=== PATIENT | male | born 1990 | race Asian ===

== ENCOUNTER 2017-06-02 21:06 | Emergency (ER) | payer MEDICAID ==
[~2017-06-02] VITALS: Ht 175.3 cm; Wt 79.4 kg
[2017-06-02 21:20] VITALS: BP 115/74
--- NOTE | 2017-06-02 21:28 | Emergency Room Report ---
History of Present Illness General Chief Complaint: Skin Rash/Abscess Source: Patient Present Illness HPI Patient presents with complaints of rash He noticed the area in the neck region Bilateral antecubital fossa and behind the knees This has flared up is about 5 months ago Patient reports is about the same time he moved locations He feels the area is fairly itchy in nature He has used a hydrocortisone cream in the past with some relief Denies any fevers or chills denies any neck pain or photophobia Allergies: Coded Allergies: Dust (Verified Allergy, Unknown, 06/02/17) POLLEN EXTRACTS (Verified Allergy, Unknown, 06/02/17) Patient History Past Medical History: see triage record Pertinent Family History: none Reviewed Nursing Documentation: PMH: Agreed, PSxH: Agreed Nursing Documentation-PMH Past Medical History: No Stated History Review of Systems All Other Systems: negative except mentioned in HPI Physical Exam Vital Signs Date Time Temp Pulse Resp B/P (MAP) Pulse Ox O2 Delivery O2 Flow Rate FiO2 06/02/17 21:09 97.9 57 18 113/78 96 Room Air 97.9 Sp02 EP Interpretation: reviewed, normal General Appearance: well appearing, no apparent distress Head: normocephalic, atraumatic Eyes: bilateral eye PERRL, bilateral eye EOMI ENT: hearing grossly normal, normal pharynx, TMs + canals normal, uvula midline Neck: full range of motion, supple, no meningismus, no bony tend Respiratory: lungs clear, normal breath sounds, no rhonchi, no respiratory distress, no retraction, no accessory muscle use Cardiovascular #1: normal peripheral pulses, regular rate, rhythm, no edema, no gallop, no JVD, no murmur Gastrointestinal: normal bowel sounds, non tender, soft, no mass, no organomegaly, non-distended, no guarding, no hernia, no pulsatile mass, no rebound Musculoskeletal: normal inspection Neurologic: oriented x3, responsive, liquid floor and wall applier III-XII nml as tested, motor strength/ tone normal, sensory intact Psychiatric: mood/affect normal Skin: other - Patient has areas of thickened skin in the antecubital fossa, full the neck, also back of the knee, appears very much in line with eczema Lymphatic: normal inspection, no adenopathy Medical Decision Making Diagnostic Impression: Primary Impression: Rash and other nonspecific skin eruption Additional Impression: Eczema ER Course Patient is discussed regarding different treatments for this skin pathology Also discussed regarding the need for close dermatology followup patient will be put on a Medrol dose pack and is stable for close outpatient follow Last Vital Signs Date Time Temp Pulse Resp B/P (MAP) Pulse Ox O2 Delivery O2 Flow Rate FiO2 06/02/17 21:09 97.9 57 18 113/78 96 Room Air 97.9 Status: unchanged Disposition: HOME, SELF-CARE Condition: Stable Additional Instructions: Patient is provided with the discharge instructions notified to follow up with primary doctor in the next 2-3 days otherwise return to the er with any worsening symptoms. Please note that this report is being documented using [email or web address] technology. This can lead to erroneous entry secondary to incorrect interpretation by the dictating instrument. FABY SALMON D.O. Jun 02, 2017 21:28
[2017-06-02] MEDS ORDERED: HYDROCORTISONE-30 GM TOPIC (21:29)
[2017-06-02] MEDS ORDERED: medrol dose pack (21:29)
[2017-06-02 21:35] VITALS: BP 120/74
[2017-06-02 21:40] VITALS: BP 120/74
== END 2017-06-02 21:40 | disposition home or self-care (01) ==
LOC: EMR 21:28
DX: L30.9 Dermatitis, unspecified (principal); Z91.048 Other nonmedicinal substance allergy status
CPT/HCPCS: 99282

== ENCOUNTER 2017-06-11 22:51 | Emergency (ER) | payer MEDICAID ==
[~2017-06-11] VITALS: Ht 175.3 cm; Wt 77.1 kg
[~2017-06-11 22:51] MED LIST: HYDROCORTISONE-30 GM TOPIC; medrol dose pack
[2017-06-11 23:00] VITALS: BP 124/82
[2017-06-11] MEDS ORDERED: KENALOG 0.025%15 GM APPLIC (23:26)
[2017-06-11 23:43] VITALS: BP 124/82
--- NOTE | 2017-06-12 00:32 | Emergency Room Report ---
History of Present Illness General Chief Complaint: Skin Rash/Abscess Source: Patient Present Illness HPI 26-year-old male, presenting with bilateral rash to arms. States that he has history of eczema and he is currently having a flare. Only uses over-the- counter hydrocortisone cream Allergies: Coded Allergies: Dust (Verified Allergy, Unknown, 06/02/17) POLLEN EXTRACTS (Verified Allergy, Unknown, 06/02/17) Patient History Past Medical History: see triage record Past Surgical History: none Pertinent Family History: none Reviewed Nursing Documentation: PMH: Agreed, PSxH: Agreed Review of Systems All Other Systems: negative except mentioned in HPI Physical Exam Vital Signs Date Time Temp Pulse Resp B/P (MAP) Pulse Ox O2 Delivery O2 Flow Rate FiO2 06/11/17 22:54 97.7 70 18 124/82 100 Room Air 97.7 Sp02 EP Interpretation: reviewed, normal General Appearance: normal inspection, well appearing, no apparent distress, alert, GCS 15, non-toxic Head: normocephalic, atraumatic Eyes: bilateral eye normal inspection, bilateral eye PERRL, bilateral eye EOMI ENT: normal ENT inspection, normal pharynx, normal voice, moist mucus membranes Neck: normal inspection, full range of motion, supple Respiratory: normal inspection, lungs clear, normal breath sounds, no respiratory distress, no retraction, no wheezing, speaking full sentences, chest symmetrical Cardiovascular #1: normal inspection, regular rate, rhythm, normal capillary refill Cardiovascular #2: 2+ radial (R), 2+ radial (L) Gastrointestinal: normal inspection, non tender, soft, non-distended, no guarding Musculoskeletal: other - Eczematous rash, scaly, bilateral arms on the flexor surfaces. No signs of infection. Neurologic: normal inspection, alert, oriented x3, responsive, motor strength/ tone normal, sensory intact, normal gait, speech normal Psychiatric: normal inspection, judgement/insight normal, memory normal Skin: normal inspection, normal color, no rash, warm/dry, well hydrated, normal turgor Medical Decision Making Diagnostic Impression: Primary Impression: Eczema ER Course 26-year-old male with bilateral rash to flexor surfaces DDX: Appears to be eczema, there is no signs of infection Plan: None ER course: Patient has remained stable during ED stay. Disposition: Patient is to be discharged to home. Prescriptions given are triamcinolone cream Patient is instructed to follow up with their primary care doctor within 5 days. Patient is instructed to keep arms very well-hydrated, using lotion, Aquaphor, Coconut oil Please note that this Emergency Department Report was dictated using [employer] worker technology software, occasionally this can lead to erroneous entry secondary to interpretation by the dictation equipment Last Vital Signs Date Time Temp Pulse Resp B/P (MAP) Pulse Ox O2 Delivery O2 Flow Rate FiO2 06/11/17 23:43 97.7 70 18 124/82 100 Room Air 97.7 Disposition: HOME, SELF-CARE Condition: Improved Scripts Triamcinolone Acet (Triamcinolone Acetonide) 15 Gm Cream..g. 15 GM APPLIC TWICE A DAY for 7 Days, #1 TUBE Prov: Jocelyn Camacho M.D. 06/11/17 Referrals: NOT CHOSEN IPA/,REFERRING (PCP) Patient Instructions: Eczema Jocelyn Camacho M.D. Jun 12, 2017 00:32
== END 2017-06-11 23:45 | disposition home or self-care (01) ==
LOC: EMR 23:17
DX: L30.9 Dermatitis, unspecified (principal); Z91.048 Other nonmedicinal substance allergy status
CPT/HCPCS: 99283